=== PATIENT | male | born 1995 | race Two or more races ===

== ENCOUNTER 2017-11-13 18:27 | Emergency (ER) | payer SELFPAY ==
[~2017-11-13] VITALS: Ht 177.8 cm; Wt 90.7 kg
[2017-11-13 18:43] VITALS: BP 128/76
[2017-11-13] MEDS ORDERED: DERMOPLAST 60ML BOTTLE TOP ONE (19:49)
[2017-11-13] MEDS ORDERED: SILVER SULFADIAZINE 1 % TOPICAL CREAM 50GM TOP ONE (20:00)
[2017-11-13] MEDS ORDERED: cefTRIAXone SOD 1,000 MG VL IM ONE (20:00)
[2017-11-13] MEDS ORDERED: HYDROcodone-ACET 10/325MG TAB PO ONE (20:00)
== END 2017-11-13 20:38 | disposition home or self-care (01) ==
LOC: ER 18:27
DX: S40.012A Contusion of left shoulder, initial encounter (principal); S90.511A Abrasion, right ankle, initial encounter; S50.812A Abrasion of left forearm, initial encounter; V23.4XXA Motorcycle driver injured in collision with car, pick-up truck or van in traffic accident, initial encounter; Y93.89 Activity, other specified; Y99.8 Other external cause status; Y92.410 Unspecified street and highway as the place of occurrence of the external cause
CPT/HCPCS: 73030; 96372; 99284; J0696